=== PATIENT | male | born 1970 | race Two or more races ===

== ENCOUNTER 2018-05-21 13:25 | Emergency (ER) | payer OTHER ==
[~2018-05-21] VITALS: Ht 167.6 cm; Wt 81.6 kg
[2018-05-21 13:33] VITALS: Ht 167.6 cm; Wt 81.6 kg
[2018-05-21 15:52] VITALS: BP 118/67
== END 2018-05-21 15:52 | disposition home or self-care (01) ==
LOC: ED 13:25
DX: S91.331A Puncture wound without foreign body, right foot, initial encounter (principal); F15.20 Other stimulant dependence, uncomplicated; F17.210 Nicotine dependence, cigarettes, uncomplicated; Z59.0 Homelessness; Z71.6 Tobacco abuse counseling; W22.8XXA Striking against or struck by other objects, initial encounter; Y93.89 Activity, other specified; Y92.89 Other specified places as the place of occurrence of the external cause; Y99.8 Other external cause status
CPT/HCPCS: 90715; 99406; J0295

== ENCOUNTER 2019-04-22 23:26 | Emergency (ER) | payer OTHER | END 2019-04-23 00:22 | disposition left against medical advice (07) | LOC: ED 23:26 | DX: Z53.21 Procedure and treatment not carried out due to patient leaving prior to being seen by health care provider (principal) ==

== ENCOUNTER 2019-04-23 04:19 | Emergency (ER) | payer OTHER ==
[~2019-04-23] VITALS: Ht 165.1 cm; Wt 67.1 kg
[2019-04-23 04:26] VITALS: Ht 165.1 cm; Wt 67.1 kg
[2019-04-23 09:00] VITALS: BP 124/85
== END 2019-04-23 09:01 | disposition home or self-care (01) ==
LOC: ED 04:19
DX: J36 Peritonsillar abscess (principal); F17.210 Nicotine dependence, cigarettes, uncomplicated
CPT/HCPCS: 99406; J0696; J7512